=== PATIENT | female | born 1985 | race Caucasian/White ===

== ENCOUNTER 2024-12-08 20:02 | Emergency (ER) | payer SELFPAY ==
[~2024-12-08] VITALS: Ht 167.6 cm; Wt 64.0 kg
[2024-12-08 20:08] VITALS: O2SAT 96
[2024-12-08] MEDS: ACETAMINOPHEN 500MG TABLET PO ONE (20:37)
[2024-12-08] MEDS: SODIUM CHLORIDE 0.9% 1,000 ML IV ONE (21:19)
[2024-12-08 21:26] LABS: BASOPHILS % 0.6 % (0.0-2.0); EOSINOPHILS % 1.6 % (0.0-5.0); HEMATOCRIT. 32.7 % (36.0-48.0); HEMOGLOBIN. 11.0 g/dL (12.0-16.0); LYMPHOCYTES % 26.5 % (20.0-50.0); MEAN PLATELET VOLUME 8.4 fl (7.4-10.4); MONOCYTES % 8.4 % (2.0-8.0); NEUTROPHILS % 62.9 % (40.0-76.0); PLATELET 397 x1000/uL (130-400); RED BLOOD CELL COUNT 3.63 mill/uL (4.2-5.4); RED CELL DISTRIBUTION WIDTH 15.5 % (11.6-14.6)
[2024-12-08 21:37] LABS: HCG SCREEN NEGATIVE
[2024-12-08 21:38] LABS: CREATININE 0.8 mg/dL (0.6-1.0); UREA NITROGEN BLOOD 17 mg/dL (9-23)
[2024-12-08 21:39] LABS: ETHANOL BLOOD < 10 mg/dL (<10)
[2024-12-08 21:40] LABS: TROPONIN I HIGH SENSITIVITY < 4 ng/L (3.0-34)
[2024-12-08] MEDS ORDERED: IBUP-2029 MT (22:51)
[2024-12-08 23:52] VITALS: BP 101/69; PULSE 85; RESP 16; TEMP 36.9; O2SAT 96
== END 2024-12-09 00:14 | disposition home or self-care (01) ==
LOC: ER 20:02
DX: S83.92XA Sprain of unspecified site of left knee, initial encounter (principal); E86.0 Dehydration; I95.9 Hypotension, unspecified; F12.90 Cannabis use, unspecified, uncomplicated; F17.200 Nicotine dependence, unspecified, uncomplicated; X58.XXXA Exposure to other specified factors, initial encounter; Y93.89 Activity, other specified; Y92.89 Other specified places as the place of occurrence of the external cause; Y99.8 Other external cause status
CPT/HCPCS: 80048; 80320; 84703; 85025; 84484; 36415; 73560; 73610; 96360; 99284; J7030; G0480